=== PATIENT | female | born 1945 | race Caucasian/White ===

== ENCOUNTER 2017-01-11 08:56 | Day surgery (SDC) | payer MEDICARE ==
[2017-01-11] MEDS ORDERED: Propofol 10 mg/ml Inj (20 ML) ONE (11:26)
[2017-01-11] MEDS ORDERED: Midazolam 2 MG/2 ML VIAL ONE (11:26)
[2017-01-11] MEDS ORDERED: Lactated Ringer's 1,000 ML IV ONE (11:30)
--- NOTE | 2017-01-11 13:06 | PCM.SURG1 ---
Surgeon's Initial Post Op Note - Surgeon's Notes Surgeon: Olga Goode< Sider: none Type of Anesthesia: General Endo, General LMA Pre-Operative Diagnosis: Postmenopausal bleeding Operative Findings: anerverted uteutrs 6 week, no adnexal masses, polypoid tissue, bilaterla ostia vialusze, polypoid 1cm wihtin cavity Post-Operative Diagnosis: same as above Operation Performed: Operative hystersopcy fractinal dilation and currttage endometrial polypecotmy Specimen/Specimens Removed: endocergvical currtteings, endometrial curretting, endometrial polyp Estimated Blood Loss: EBL {In ML}: 10 Blood Products Given: N/A Drains Used: No Drains Post-Op Condition: Good Date of Surgery/Procedure: 01/11/17 Time of Surgery/Procedure: 11:00
[2017-01-11 13:56] VITALS: RESP 16; TEMP 97.2
[2017-01-11 14:01] VITALS: BP 159/66; PULSE 70; O2SAT 95
--- NOTE | 2017-01-11 16:32 | OP ---
PROCEDURE DATE: 01/11/2017 PREOPERATIVE DIAGNOSIS: Postmenopausal bleeding. POSTOPERATIVE DIAGNOSIS: Postmenopausal bleeding. OPERATIVE FINDINGS: Anteverted uterus 6 weeks, no adnexal masses. Polypoid tissue noted 1 cm within the cavity floating in close proximity against the fundus, bilateral ostia visualized. OPERATION PERFORMED: Operative hysteroscopy and fractional dilation and curettage and endometrial polypectomy. SURGEON: Dr. Olga Goode MD SENIOR MAINTENANCE MECHANIC: None. TYPE OF ANESTHESIA: General LMA. SPECIMEN REMOVED: Endocervical curettings, endometrial curettings, and endometrial polyps. ESTIMATED BLOOD LOSS: 10 mL. BLOOD PRODUCTS: None. COMPLICATIONS: None. DESCRIPTION OF PROCEDURE: The patient was taken to the operating where she was given general anesthesia, once found to be adequate, she was placed on the operating table in the dorsal supine position with legs supported using stirrups. The patient was then prepped and draped in the usual sterile fashion. A time-out confirmed correct patient and correct procedure. Bimanual exam was performed with the above-mentioned findings. A red rubber catheter was then inserted into the urethra to drain the bladder. Approximately 40 mL of clear yellow urine was obtained. Following this, a bimanual exam was obtained and a Awan retractor was placed in the anterior and posterior fornix of the vagina. A single tooth tenaculum was placed on the anterior lip of the cervix and endocervical curettings were obtained with a Roblesian curette and sent to pathology on [facility]. The uterus was then sounded to 6 cm and following this, cervix was sequentially dilated to allow for introduction of the hysteroscope under direct visualization using normal saline as media. Bilateral ostia are visualized and the polypoid tissue was noted. A MyoSure device was then inserted under direct visualization and the mass was then carefully resected with good hemostasis noted. The hysteroscope was then removed and then gentle curettage was done 360 degrees until gritty texture was noted. The specimen was labeled as endometrial curettings. All instruments were removed. There was good hemostasis noted at the tenaculum puncture site. At the end of the procedure, all needle, sponge, and instrument counts were noted and correct x2. The patient tolerated the procedure well and was transferred to the recovery room in stable condition. Olga Goode MD [facility] # [id number]
== END 2017-01-11 13:39 | disposition home or self-care (01) ==
LOC: C.SDS 08:56
PROVIDERS: ATTEND Obstetrics & Gynecology
DX: N95.0 Postmenopausal bleeding (principal); N85.4 Malposition of uterus; N84.0 Polyp of corpus uteri
CPT/HCPCS: 58558; 82948; 88305; J2001; J2250; J2405; J2704; J3010; J7120